=== PATIENT | female | born 1950 | race Hispanic/Latino ===

== ENCOUNTER → 2021-03-17 | Outpatient (CLI) | payer OTHER | END | disposition home or self-care (01) | LOC: RAH 10:57 | PROVIDERS: ATTEND Internal Medicine | DX: N18.1 Chronic kidney disease, stage 1 (principal) | CPT/HCPCS: 76770 ==

== ENCOUNTER → 2021-04-09 | Outpatient (CLI) | payer OTHER | END | disposition home or self-care (01) | LOC: RAH 10:21 | PROVIDERS: ATTEND Internal Medicine | DX: R59.0 Localized enlarged lymph nodes (principal); M25.562 Pain in left knee | CPT/HCPCS: 76536 ==

== ENCOUNTER → 2024-10-01 | Outpatient (CLI) | payer OTHER ==
--- NOTE | 2024-10-01 11:01 | HMCIMG ---
US ABDOMINAL RUQ\E\LTD HISTORY: Abnormal liver function tests COMPARISON: None TECHNIQUE: Right upper quadrant abdominal ultrasound study was performed. FINDINGS: Liver measures 16 cm. The visualized portion of the pancreas is within normal limits. Liver is echogenic consistent with liver parenchymal disease. No gallstone is seen. Common duct measures 4 mm. No evidence of gallbladder wall thickening is seen. Right kidney measures 10.7 x 3.2 x 4.8 cm. No hydronephrosis is seen of the right kidney. IMPRESSION: 1. No gallstones or ductal dilatation is seen. 2. No hydronephrosis is seen.
== END | disposition home or self-care (01) ==
LOC: RAH 08:17
PROVIDERS: ATTEND Internal Medicine
DX: R79.89 Other specified abnormal findings of blood chemistry (principal)
CPT/HCPCS: 76705